=== PATIENT | female | born 1945 | race Caucasian/White ===

== ENCOUNTER 2017-01-22 14:55 | Emergency (ER) | payer MEDICARE ==
[~2017-01-22] VITALS: Ht 160 cm; Wt 45.4 kg
[2017-01-22 15:47] VITALS: BP 131/69
[2017-01-22 16:38] LABS: BILIRUBIN,URINE NEGATIVE (NEG); GLUCOSE,URINE NEGATIVE (NEG); NITRITE,URINE POSITIVE (NEG); PROTEIN,URINE NEGATIVE (NEG-TRACE); UROBILINOGEN,URINE 0.2 mg/dL (0.2 mg/dL)
[2017-01-22 16:47] LABS: BACTERIA,URINE MANY /HPF (0-FEW); RBC,URINE 0 /HPF (0-2); SQUAMOUS EPITHELIAL CELL,UR FEW /LPF
--- NOTE | 2017-01-22 16:47 | PHYS DOC ---
Past Medical History Past Medical History: COPD Past Surgical History: Other Additional Past Surgical Histo: R ANKLE, R KNEE Alcohol Use: Occasionally Drug Use: None Adult General Chief Complaint Chief Complaint: WEAKNESS/GENERALIZED HPI HPI Patient is a 71 year old female who presents to the ED with her who tells me that he "couldn't wake her up today" and he "had to dress her". Patient is very argumentative about this. She states she is fine and states that she did not sleep too late. She doesn't know why he brought her here and she doesn't need to be here. The patient and her are here from [place] visiting their daughter. They've been here for about 2 weeks. She's been feeling fine. She went to bed about 8:00 last night. She said she was watching sharp tank on TV and fell asleep. states she slept until 3:00 today. However, patient checked in here at 5 total 3. She believes she slept until 1: 00. She doesn't think that is unusual for her, he thinks it is. The patient and her are both somewhat hard of hearing, both arguing with each other, and the history is somewhat difficult. Their daughter is not here, the thinks she is at work. Patient denies fever or chills, denies shortness of air or cough, denies nausea or vomiting. She denies pain anywhere. She's been feeling fine. She's not on any new medications. She is on a blood thinner, "the one you see on TV all the time". She also may take a medicine for anxiety but they don't know what it is. She does not take a sleeping pill. She's not diabetic. PCP in [place] Review of Systems Review of Systems Constitutional: Denies fever or chills [] HENT: Denies nasal congestion or sore throat [] Respiratory: Denies cough or shortness of breath . She does smoke. She does use an Advair inhaler. Cardiovascular: Denies chest pain GI: Denies abdominal pain, nausea, vomiting, bloody stools or diarrhea [] : Denies dysuria or hematuria [] Musculoskeletal: Denies back pain or joint pain [] Neurologic: Denies headache Current Medications Current Medications Current Medications Medications (Trade) Dose Ordered Sig/Kieran Start Time Stop Time Status Last Admin Dose Admin Ciprofloxacin (Cipro) 250 mg 1X ONCE 01/22/17 17:45 01/22/17 17:46 DC 01/22/17 17:44 250 MG Allergies Allergies Allergies Coded Allergies Type Severity Reaction Last Updated Verified No Known Drug Allergies 01/22/17 No Physical Exam Physical Exam Constitutional: Well developed, well nourished, no acute distress, non-toxic appearance. Alert, interactive, wide awake, she does not appear sleepy or lethargic. She was sitting up on the edge of the bed messing with her blood pressure cuff I went in the room. She does seem to have a pretty good idea of the events of the last 24 hours although she and her argue about what time certain things happened. HENT: Normocephalic, atraumatic, bilateral external ears normal, nose normal. [ ] Eyes: conjunctiva normal, no discharge. [] Neck: Normal range of motion, no stridor. [] Cardiovascular:Heart rate regular rhythm, no murmur [] Lungs & Thorax: Bilateral equal breath sounds present, mildly diminished throughout, expiratory wheezes present throughout, mild. Abdomen: soft, no masses, no pulsatile masses. [] Skin: Warm, dry, no erythema, no rash. [] Extremities: No tenderness, no cyanosis, no clubbing, ROM intact, no edema. [] Neurologic: Alert and oriented X 3, normal motor function, no focal deficits noted. The patient seems to likely be at her baseline. Current Patient Data Vital Signs Vital Signs Date Time Temp Pulse Resp B/P (MAP) Pulse Ox O2 Delivery O2 Flow Rate FiO2 01/22/17 15:47 97.6 93 16 131/69 (89) 94 Room Air 97.6 Lab Values Laboratory Tests Test 01/22/17 15:43 01/22/17 16:40 Urine Collection Type Void Urine Color Straw Urine Clarity Clear Urine pH 6.0 Urine Specific [place] 1.010 Urine Protein Negative mg/dL (NEG-TRACE) Urine Glucose (UA) Negative mg/dL (NEG) Urine Ketones (Stick) Negative mg/dL (NEG) Urine Blood Negative (NEG) Urine Nitrite Positive (NEG) Urine Bilirubin Negative (NEG) Urine Urobilinogen Dipstick 0.2 mg/dL (0.2 mg/dL) Urine Leukocyte Esterase Small (NEG) Urine RBC 0 /HPF (0-2) Urine WBC 5-10 /HPF (0-4) Urine Squamous Epithelial Cells Few /LPF Urine Bacteria Many /HPF (0-FEW) Urine Mucus Slight /LPF White Blood Count 4.7 x10^3/uL (4.0-11.0) Red Blood Count 4.10 x10^6/uL (3.50-5.40) Hemoglobin 14.0 g/dL (12.0-15.5) Hematocrit 39.7 % (36.0-47.0) Mean Corpuscular Volume 97 fL (79-100) Mean Corpuscular Hemoglobin 34 pg (25-35) Mean Corpuscular Hemoglobin Concent 35 g/dL (31-37) Red Cell Distribution Width 13.1 % (11.5-14.5) Platelet Count 316 x10^3/uL (140-400) Neutrophils (%) (Auto) 45 % (31-73) Lymphocytes (%) (Auto) 42 % (24-48) Monocytes (%) (Auto) 6 % (0-9) Eosinophils (%) (Auto) 5 % (0-3) H Basophils (%) (Auto) 1 % (0-3) Neutrophils # (Auto) 2.1 x10^3uL (1.8-7.7) Lymphocytes # (Auto) 2.0 x10^3/uL (1.0-4.8) Monocytes # (Auto) 0.3 x10^3/uL (0.0-1.1) Eosinophils # (Auto) 0.2 x10^3/uL (0.0-0.7) Basophils # (Auto) 0.1 x10^3/uL (0.0-0.2) Sodium Level 130 mmol/L (136-145) L Potassium Level 4.1 mmol/L (3.5-5.1) Chloride Level 94 mmol/L (98-107) L Carbon Dioxide Level 30 mmol/L (21-32) Anion Gap 6 (6-14) Blood Urea Nitrogen 7 mg/dL (7-20) Creatinine 0.6 mg/dL (0.6-1.0) Estimated GFR (Cockcroft-Gault) 98.3 BUN/Creatinine Ratio 12 (6-20) Glucose Level 83 mg/dL (70-99) Calcium Level 8.9 mg/dL (8.5-10.1) Total Bilirubin 0.3 mg/dL (0.2-1.0) Aspartate Amino Transferase (AST) 23 U/L (15-37) Alanine Aminotransferase (ALT) 22 U/L (14-59) Alkaline Phosphatase 66 U/L (46-116) Total Protein 7.7 g/dL (6.4-8.2) Albumin 4.1 g/dL (3.4-5.0) Albumin/Globulin Ratio 1.1 (1.0-1.7) Laboratory Tests 01/22/17 16:40 Laboratory Tests 01/22/17 16:40 EKG EKG [] Radiology/Procedures Radiology/Procedures [] Course & Med Decision Making Course & Med Decision Making Pertinent Labs and Imaging studies reviewed. (See chart for details) 71-year-old female brought to the ED by her for the chief complaint that he was not able to wake her up and she slept late today. When he first woke her up, she was confused and he had to help dress her. Although I certainly am concerned about these events that he describes, the patient is fully alert, talkative, not a bit lethargic, and ambulatory, here in the ED. I discussed with them that we will check some tests here in the ED. They did not bring a med list with them although there is no history of her taking any type of the sedative medication, and even if she did, they say she went to bed at 8: 00 PM and did not wake up until noon or 1:00, most everything would have worn off by then. Labs remarkable for mildly decreased sodium which I doubt is contributing to the complaint. I don't know what medications the patient is on so I can't determine whether this is a medication effect. She is here from out of town so I don't have any old records on her. Also noted the patient has a UTI which we will treat. She was given her first dose of Cipro here. See instructions for plan. [] Dragon Disclaimer Dragon Disclaimer This electronic medical record was generated, in whole or in part, using a voice recognition dictation system. Departure Departure Impression: Primary Impression: Urinary tract infection Additional Impression: Hyponatremia Disposition: 01 HOME, SELF-CARE Condition: STABLE Patient Instructions: Hyponatremia, [id number], Urinary Tract Infection, Easy -to-Read Additional Instructions: Today, we found out that you do have a urinary tract infection. We need to start you on an antibiotic for that. You had your first dose here in the emergency department. We like to dosage about every 12 hours, within reason, so if it is a long time before you go to bed, take another dose tonight, otherwise , take another dose early tomorrow morning. Also, your sodium is a little bit low. This can be caused by medications, follow -up with your doctor as soon as possible to have a repeat sodium. Scripts Ciprofloxacin Hcl (CIPRO) 250 Mg Tablet 1 TAB PO BID for UTI, #14 TAB Prov: TATYANA CANO MD 01/22/17 Problem Qualifiers TATYANA CANO MD Jan 22, 2017 16:47
[2017-01-22 16:51] LABS: BASO # 0.1 x10^3/uL (0.0-0.2); BASO % 1 % (0-3); EOS % 5 % (0-3); HEMATOCRIT 39.7 % (36.0-47.0); LYMPH % 42 % (24-48); MEAN CORPUSCULAR HEMOGLOBIN 34 pg (25-35); MEAN CORPUSCULAR HGB CONC 35 g/dL (31-37); MEAN CORPUSCULAR VOLUME 97 fL (79-100); MONO % 6 % (0-9); NEUT % 45 % (31-73); PLATELET COUNT 316 x10^3/uL (140-400); RED CELL DISTRIBUTION WIDTH 13.1 % (11.5-14.5); WHITE BLOOD COUNT 4.7 x10^3/uL (4.0-11.0)
--- NOTE | 2017-01-22 16:58 | RAD ---
Indication fatigue. Protocol study. Frontal and lateral views of the chest were obtained. No prior imaging of the chest is available. There is moderate hyperexpansion. Findings are suggestive of emphysema. Heart size and pulmonary vessels are within normal limits. The lungs are clear of acute infiltrates. Significant pleural fluid is not seen and there is no pneumothorax. Bilateral nipple shadows are noted. An orthopedic plate and screws are noted associated with the left clavicle. There is probable bony demineralization. There is mild wedging of several thoracic vertebral body segments. IMPRESSION: Chronic changes. No acute finding seen
[2017-01-22 17:12] LABS: CALCIUM 8.9 mg/dL (8.5-10.1); CREATININE 0.6 mg/dL (0.6-1.0); GFR 98.3; POTASSIUM 4.1 mmol/L (3.5-5.1)
[2017-01-22 17:28] LABS: ALBUMIN 4.1 g/dL (3.4-5.0); ALBUMIN/GLOBULIN RATIO 1.1 (1.0-1.7); TOTAL BILIRUBIN 0.3 mg/dL (0.2-1.0); TOTAL PROTEIN 7.7 g/dL (6.4-8.2)
[2017-01-22] MEDS ORDERED: CIPR250T30 PO (17:42)
[2017-01-22] MEDS ORDERED: CIPROFLOXACIN HCL 250 MG TABLET. PO ONE (17:45)
== END 2017-01-22 17:47 | disposition home or self-care (01) ==
LOC: ER 14:55
DX: N39.0 Urinary tract infection, site not specified (principal); E87.1 Hypo-osmolality and hyponatremia; J44.9 Chronic obstructive pulmonary disease, unspecified; F17.200 Nicotine dependence, unspecified, uncomplicated
CPT/HCPCS: 36415; 71020; 80053; 81001; 85025; 87086; 99285-25